=== PATIENT | female | born 1970 | race Hispanic/Latino ===

== ENCOUNTER 2017-08-28 10:06 | Emergency (ER) | payer MEDICARE ==
[2017-08-28] MEDS ORDERED: ULTRAM PO ONE (12:00)
[2017-08-28 12:01] VITALS: BP 123/61
[2017-08-28] MEDS ORDERED: BOOSTRIX IM ONE (12:01)
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
[2017-08-28] MEDS ORDERED: ANTIBIOTIC OINT TP ONE (13:31)
== END 2017-08-28 15:02 | disposition home or self-care (01) ==
LOC: ED 10:06
DX: S16.1XXA Strain of muscle, fascia and tendon at neck level, initial encounter (principal); S09.8XXA Other specified injuries of head, initial encounter; S00.81XA Abrasion of other part of head, initial encounter; F31.9 Bipolar disorder, unspecified; F20.9 Schizophrenia, unspecified; F41.9 Anxiety disorder, unspecified; F43.10 Post-traumatic stress disorder, unspecified; F17.200 Nicotine dependence, unspecified, uncomplicated
CPT/HCPCS: 70450; 70486; 72125; 90471; 90715